=== PATIENT | female | born 1990 | race Asian ===

== ENCOUNTER → 2024-06-11 10:58 | Outpatient (REF) | payer OTHER, SELFPAY | LOC: RAD 10:58 | PROVIDERS: ATTENDING PHYSICIAN Obstetrics & Gynecology; FAMILY PHYSICIAN Family Medicine | DX: O36.80X0 Pregnancy with inconclusive fetal viability, not applicable or unspecified (principal) | CPT/HCPCS: 76801 ==

== ENCOUNTER 2024-12-17 11:33 | Inpatient (IN) | payer OTHER, SELFPAY ==
[2024-12-17 12:24] VITALS: BP 135/87; BMI 27.6
[2024-12-17] MEDS: LR 1000 IV ×2 (12:45→16:43)
[2024-12-17 13:43] LABS: % Basophils 0.5 % (0-2); % Eosinophils 0.7 % (0-6); % Immature Granulocytes 0.4 % (0-0.5); % Lymphocytes 17.1 % (20.5-51.1); % Monocytes 5.7 % (1.7-9.3); % Neutrophils 75.6 % (42.2-75.2); Absolute Eosinophils 0.1 10^3/uL (0-0.7); Absolute Lymphocytes 1.5 10^3/uL (1.2-3.4); Absolute Monocytes 0.5 10^3/uL (0.1-0.6); Absolute Neutrophils 6.4 10^3/uL (1.4-6.5); Hematocrit 31.2 % (37.0-47.0); Hemoglobin 10.5 g/dL (12.0-16.0); Mean Corp Hgb Conc. 33.7 g/dL (33.0-37.0); Mean Corpuscular Hgb 28.4 pg (27.0-31.0); Mean Corpuscular Volume 84.3 fL (81.0-99.0); Mean Platelet Volume 10.4 fL (7.4-10.4); Nucleated Red Blood Cells % 0 %; Platelet Count 278 10^3/uL (130-400); Red Cell Dist. Width 13.3 % (11.5-14.5); White Blood Cell Count 8.5 10^3/uL (4.8-10.8)
[2024-12-17] MEDS: PITOCIN 30 UNITS/NSS 500 ML IV (14:07)
[2024-12-17 17:26] LABS: ALT (SGPT) 15 U/L (0-35); AST (SGOT) 48 U/L (14-36); Albumin 3.2 g/dl (3.5-5.0); Alkaline Phosphatase 222 U/L (38-126); Blood Urea Nitrogen 14 mg/dl (7-17); Calcium 8.5 mg/dl (8.4-10.2); Carbon Dioxide 22 mmol/L (22-30); Chloride 103 mmol/L (98-107); Estimated Creatinine Clearance 125 ml/min; Glucose 71 mg/dl (70-99); Potassium 4.2 mmol/L (3.5-5.1); Sodium 133 mmol/L (135-145); Total Bilirubin 0.2 mg/dl (0.2-1.3); Total Protein 6.2 g/dl (6.3-8.2); eGFR > 60.00
[2024-12-17] MEDS: ZOFRAN 4 MG IV (21:15)
[2024-12-18] MEDS: LR 1000 IV (05:18)
[2024-12-18] MEDS: BICITRA 30 ML PO (05:45)
[2024-12-18] MEDS: TYLENOL 1000 MG PO (05:45)
[2024-12-18] MEDS: CLEOCIN 50 IV (05:45)
[2024-12-18] MEDS: GENTAMICIN 58.75 MG IV (06:00)
[2024-12-18] MEDS: ZITHROMAX INFUSION 250 IV (06:30)
[2024-12-18] MEDS: SYNTHROID PO (07:33)
--- NOTE | 2024-12-18 09:59 | HPS.HSE ---
Family Physician
-
Family Physician: Rylie Holly, DO
Chief Complaint
-
leakage of fluid
History of Present Illness
Patient is a 34yo @37.5 who presented to Labor and Delivery with spontaneous rupture of membranes. She was started on Pitocin. She made it to complete and pushed for over 4 hours. Patient met criteria for arrest of dilation and section
was recommended.
complications:
- hypothyroidism
- IVF
PMHx: hypothyroidism, infertility
Meds: Synthroid 50mcg, PNV
Surghx: appendectomy, egg retrieval
All: amoxicillin- rash
Socialhx: denies tobacco, etoh or illicit drug use
Famhx: paternal grandmother w/ DM, HTN, thyroid disease
OBHx: SABx3, EABx1, ectopicx1
labs: Blood type O+, Ab neg, Pap NILM neg HPV, Rubella immune, RPR nonreactive, Ucx neg, HBsAg neg, HIV neg, GCCT neg, Hep C neg, A1C 5.4, 1hr 105, GBS neg
Medical History
Past Medical History
Past Medical History: Reports Hypothyroidism
Past Surgical History: Reports Appendectomy
Social History
Tobacco: Non-smoker
Alcohol: None
Drug: None
Family History
Family History: Not pertinent
Allergies / Home Medications
Allergies reflects when Allergies were last updated in [facility].
Home Medications with original date entered in [facility]
Allergy/Medication List:
Meds: Synthroid 50mcg, PNV
All: amoxicillin- rash
Review of Systems
-
A 12 point ROS was completed and negative except as noted: Yes
Physical Exam
Vital Signs
Vital Signs
Temp Pulse Resp BP
98.1 F 100 18 135/87
12/17/24 12:24 12/17/24 12:24 12/17/24 12:24 12/17/24 12:24
Physical Exam
General: Well Developed and Well Nourished
HEENT: NormoCephalic
Respiratory: Non Labored Respirations
Cardiac: Regular Rhythm
Skin: Warm and Dry
Neuro: Awake and Alert
Psych: Calm
Laboratory Results
-
12/17/24 12:36
12/17/24 16:49
Laboratory Results
Total Bilirubin 0.2 mg/dl (0.2-1.3) 12/17/24 16:49
AST 48 U/L (14-36) H 12/17/24 16:49
ALT 15 U/L (0-35) 12/17/24 16:49
Alkaline Phosphatase 222 U/L (38-126) H 12/17/24 16:49
Impression/Plan
-
IMPRESSION:
Patient is a 34yo @37.5 arrest of descent
PLAN:
Patient had been pushing for greater than 4 hours. She had tried multiple positions and had good maternal effort with each push. She was offered to continue pushing or proceed with primary section for arrest of descent. Discussed with
patient that there was very little descent of the head and it is not likely that she will deliver vaginally. She agreed to proceed with primary section. Risks, benefits, and alternatives including bleeding, infection, damage to surrounding
structures, and need for future operations discussed. Consents signed. Pt consented for blood transfusion if needed. Anesthesia notified. Clindamycin, gentamicin and azithromycin ordered for antibiotic prophylaxis.
--- NOTE | 2024-12-18 10:32 | OR.RPT ---
Addendum entered and electronically signed by Rylie Holly DO 12/18/24 17:02:
Procedure performed: primary low transverse section
Original Note:
Operative Report
Operative Report
Preop diagnosis: IUP @37.5, spontaneous rupture of membranes, arrest of descent
Postop diagnosis: same
Surgeon: Elayne
Anesthesia: Spinal, Cade
QBL: 530mL
Findings: Viable female , born at 0614 with Apgars 8/9. Normal appearing uterus, fallopian tubes and ovaries. Oozing from the serosa of the posterior uterus controlled with Bovie cautery. TXA 1g given intraop.
Rojas catheter draining clear urine before and after the procedure
Complications: none
Indication: Patient is a 34yo @37.5 weeks who presented to Labor and Delivery with spontaneous rupture of membranes. She was started on Pitocin and progressed to 10cm. She started pushing and after greater than 4 hours, there had been minimal
descent of the head. She had tried multiple positions and had good maternal effort with each push. She was offered to continue pushing or proceed with primary section for arrest of descent. Discussed with patient that there was very
little descent of the head and it is not likely that she will deliver vaginally. She agreed to proceed with primary section. Risks, benefits, and alternatives including bleeding, infection, damage to surrounding structures, and need for
future operations discussed. Consents signed. Pt consented for blood transfusion if needed. Anesthesia notified. Clindamycin, gentamicin and azithromycin ordered for antibiotic prophylaxis.
Procedure: Patient was taken to the operating room where spinal anesthesia was administered and found to be adequate. 900mg of clindamycin, 5mg/kg of gentamicin and 500mg of azithromycin were given for antibiotic prophylaxis. The abdomen was prepped
with ChloraPrep. The patient was draped in the normal sterile fashion. She was placed in the dorsal supine position with a left lateral tilt. A Pfannenstiel incision was made with a 10 blade and carried down to the fascia with a scalpel. Hemostasis
achieved with Bovie. The fascia was incised and dissected laterally with Edwards scissors. The superior aspect of the fascia was grasped with Jewell clamps. The underlying rectus fascia was sharply dissected with Edwards scissors. In a similar fashion the
inferior aspect of the fascia was elevated with Jewell clamps and the rectus muscle was dissected off with Edwards scissors. The rectus muscles were down the midline to the level of the pubic symphysis with manual dissection. The peritoneum
was bluntly entered and extended using manual traction.
Gaxiola retractor and bladder blade were placed revealing good visualization of the bladder. The vesicouterine peritoneum was identified. A thin lower uterine segment was noted. The lower uterine segment was incised with a scalpel. Clear fluid
and hand noted at entry into the cavity. The uterine incision was extended bluntly with lateral and upward traction.
The fetus was in cephalic presentation. The head was elevated out of the pelvis with special attention paid to avoid using the uterine incision as a fulcrum. Gentle fundal pressure was applied one the head was brought to the incision. The head
delivered through the hysterotomy and the rest of the delivered without difficulty. Delayed cord clamping was performed. Cord gases were collected. The infant was handed off to the engineering drawings checker. IV oxytocin was started to facilitate uterine
contractions. The placenta was expressed with fundal massage and gentle downward pressure and sent to pathology for evaluation. The uterus was exteriorized. Allis clamps were placed at the apices of the hysterotomy. The inside of the uterus was
wiped with a lap sponge to assure complete removal of placental membranes. Fundal massage was performed and uterus noted to be firm. The uterine incision was closed with 0 Vicryl in a running locked fashion. A horizontal imbricating stitch was done
on the hysterotomy with 0 Vicryl. There was oozing from the right side of the hysterotomy and a figure of eight was placed with 2-0 Vicryl. There was oozing from the serosa of the uterus and Bovie cautery was used to achieve hemostasis. The
hysterotomy was inspected and noted to be hemostatic. The uterus was placed back in the abdomen. Blood clots and fluid were wiped out of the abdomen and pelvis with moist laparotomy sponges. The hysterotomy was examined again and there was noted to
be bleeding coming from superior to the hysterotomy. The uterus was exteriorized again. There was oozing from the serosa on the posterior uterus from raw areas. These areas were cauterized with the Bovie and noted to be hemostatic. The hysterotomy
and posterior uterus were inspected again and were hemostatic. The uterus was placed back in the abdomen. The hysterotomy was examined a final time and noted to be hemostatic.
The rectus muscles were inspected and noted to be hemostatic. The fascial layer was closed in a running continuous fashion using 0 Vicryl. The subcutaneous tissue was copiously irrigated and any small bleeding vessels were cauterized with Bovie
cautery. The subcutaneous tissue was reapproximated in a running continuous fashion with 2-0 Plain. The skin was closed with 4-0 Vicryl in a subcuticular fashion. The incision was covered with skin glue. The patient tolerated the procedure well. All
sponge and instrument counts were correct times two. The patient was taken to the recovery room in stable condition.
[2024-12-18] MEDS: TORADOL 15 MG IV ×2 (13:43→19:44)
[2024-12-19] MEDS: TORADOL 15 MG IV ×2 (01:56→08:33)
[2024-12-19 05:10] LABS: ALT (SGPT) 20 U/L (0-35); AST (SGOT) 89 U/L (14-36); Albumin 2.5 g/dl (3.5-5.0); Alkaline Phosphatase 170 U/L (38-126); Blood Urea Nitrogen 17 mg/dl (7-17); Calcium 7.6 mg/dl (8.4-10.2); Carbon Dioxide 25 mmol/L (22-30); Chloride 100 mmol/L (98-107); Estimated Creatinine Clearance 107 ml/min; Glucose 79 mg/dl (70-99); Potassium 4.2 mmol/L (3.5-5.1); Sodium 129 mmol/L (135-145); Total Bilirubin 0.4 mg/dl (0.2-1.3); Total Protein 5.2 g/dl (6.3-8.2); eGFR > 60.00
[2024-12-19] MEDS: SYNTHROID 50 MCG PO (06:09)
[2024-12-19 07:01] LABS: Hematocrit 24.2 % (37.0-47.0); Hemoglobin 8.3 g/dL (12.0-16.0); Mean Corp Hgb Conc. 34.3 g/dL (33.0-37.0); Mean Corpuscular Hgb 28.3 pg (27.0-31.0); Mean Corpuscular Volume 82.6 fL (81.0-99.0); Mean Platelet Volume 9.9 fL (7.4-10.4); Platelet Count 249 10^3/uL (130-400); Red Blood Cell Count 2.93 10^6/uL (4.20-5.40); Red Cell Dist. Width 13.6 % (11.5-14.5); White Blood Cell Count 16.9 10^3/uL (4.8-10.8)
--- NOTE | 2024-12-19 08:49 | W.PN.ANS.POP ---
Anesthesia Post Operative
- Anesthesia Post Op Note
Vital Signs Stable-See Nursing Note: Yes
Airway Patent: Yes
Adequate Pain Control: Yes
Change in Mental Status: No
Current Postoperative Nausea & Vomiting: No
Anesthesia Complications: No
General Anesthetic Recall: No
Unplanned Admission: No
Post Op Hydration Adequate: Yes
- -
Pt awake and alert- resting comfortably with no anesthesia related c/o at time of post op visit.
[2024-12-19] MEDS: FEOSOL 325 MG PO (11:43)
[2024-12-19] MEDS: TYLENOL 650 MG PO ×2 (14:50→22:38)
[2024-12-19] MEDS: MOTRIN 600 MG PO ×2 (14:50→22:38)
[2024-12-20] MEDS: MOTRIN 600 MG PO ×3 (05:15→20:36)
[2024-12-20] MEDS: TYLENOL 650 MG PO ×3 (05:15→20:37)
[2024-12-20] MEDS: SYNTHROID 50 MCG PO (06:04)
[2024-12-20] MEDS: SENOKOT-S 1 TABLET PO (09:03)
[2024-12-20] MEDS: FEOSOL 325 MG PO (09:03)
[2024-12-20 16:47] LABS: Syphilis/T. pallidum Ab Reflex Negative (Negative)
[2024-12-21] MEDS: MOTRIN 600 MG PO (05:47)
[2024-12-21] MEDS: SYNTHROID 50 MCG PO (05:47)
[2024-12-21] MEDS: TYLENOL 650 MG PO (05:47)
[2024-12-21] MEDS: FEOSOL 325 MG PO (07:23)
[2024-12-21] MEDS: SENOKOT-S 1 TABLET PO (07:26)
== END 2024-12-21 11:25 | disposition home or self-care (01) | DRG 788 ==
LOC: LDRP 11:33
PROVIDERS: Obstetrics & Gynecology; ADMITTING PHYSICIAN Student in an Organized Health Care Education/Training Program
PROC: 10D00Z1 Extraction of Products of Conception, Low, Open Approach (ICD-10-PCS; 2024-12-18)
DX: O62.1 Secondary uterine inertia (principal); Z3A.37 37 weeks gestation of pregnancy; Z37.0 Single live birth
CPT/HCPCS: 36415; 80053; 85025; 85027; 86780; 86850; 86900; 86901